=== PATIENT | male | born 1945 | race Caucasian/White ===

== ENCOUNTER 2019-07-19 07:54 | Day surgery (SDC) | payer OTHER ==
[~2019-07-19] VITALS: Ht 172.7 cm; Wt 94.0 kg
[~2019-07-19 07:54] MED LIST: AMLO10 PO; ASPI81CH PO; ATOR20 PO; CENTRUM SILVER1 EAC2 PO; CHLO25B PO; CLOP75 PO; LATA.005SO BOTHEYES; LOSA50 PO; METO25ER PO; TIMOLOL MALEATE5 ML OP; VITAMIN C500 M1 PO; XARELTO2.5 M1
[2019-07-19] MEDS ORDERED: CLOP75 PO (11:58)
--- NOTE | 2019-07-19 14:03 | NUR ---
DISCHARGE PT AMBULATED TO RESTROOM AND DRESSED SELF WITH NO COMPLICATIONS. PT DENIES ANY PAIN. R FEMORAL SITE DRESSING C/D/I. NO SIGNS OF BLEEDING, OOZING OR HEMATOMA NOTED. IV DCD WITH CATH INTACT. VSS. PT STATES HIS UNDERSTANDING OF DISCHARGE AND SITE CARE INSTRUCTIONS AND DENIES ANY QUESTIONS OR CONCERNS. PT TAKEN TO EXIT VIA WC.
== END 2019-07-19 14:35 | disposition home or self-care (01) ==
LOC: MHTC 07:54
DX: I70.213 Atherosclerosis of native arteries of extremities with intermittent claudication, bilateral legs (principal); Z79.899 Other long term (current) drug therapy; Z79.82 Long term (current) use of aspirin
CPT/HCPCS: 37227; 75625; 75716; 75774; 85347; 99152; 99153; A9270-GY; C1714; C1725; C1760; C1769; C1874; C1884; C1887; C1894; J1644; J2250; J3010; J7030; Q9967